=== PATIENT | male | born 1970 | race Caucasian/White ===

== ENCOUNTER 2024-11-14 21:20 | Emergency (ER) | payer MEDICARE, MEDICAID ==
[~2024-11-14] VITALS: Ht 177.8 cm; Wt 95.5 kg
[~2024-11-14 21:20] MED LIST: CLON-595 PO; DIVA-153 PO
[2024-11-14 21:30] VITALS: BP 146/102; PULSE 94; RESP 16; TEMP 98.4; O2SAT 97
[2024-11-14 21:39] LABS: COVID AG,FIA SOURCE NASAL SWAB
[2024-11-14 21:50] LABS: RAPID GROUP A STREP NEGATIVE (NEGATIVE)
[2024-11-14 21:57] LABS: INFLUENZA TYPE A NEGATIVE FOR TYPE A (NEGATIVE); INFLUENZA TYPE B NEGATIVE FOR TYPE B (NEGATIVE); SARS-COV2 (COVID) ANTIGEN,FIA Negative (Negative)
[2024-11-14] MEDS ORDERED: AMOX500C2 PO (23:07)
[2024-11-14] MEDS: IBUPROFEN 400 MG TABLET PO ONE (23:17)
[2024-11-14] MEDS: AMOXICILLIN TRIHYDRATE 250 MG CAPSULE PO ONE (23:17)
[2024-11-14] MEDS: dexAMETHasone 4 MG TABLET PO ONE (23:17)
== END 2024-11-14 23:21 | disposition home or self-care (01) ==
LOC: EMS 21:20
DX: H65.01 Acute serous otitis media, right ear (principal); R07.0 Pain in throat; I10 Essential (primary) hypertension; F31.9 Bipolar disorder, unspecified; F17.210 Nicotine dependence, cigarettes, uncomplicated; Z88.8 Allergy status to other drugs, medicaments and biological substances; Z79.899 Other long term (current) drug therapy; Z20.822 Contact with and (suspected) exposure to COVID-19
CPT/HCPCS: 99284; 87426; 87430; 87804; J8540; Z7502; Z7610

== ENCOUNTER 2025-05-12 15:50 | Emergency (ER) | payer MEDICARE, MEDICAID ==
[~2025-05-12] VITALS: Ht 177.8 cm; Wt 104.4 kg
[~2025-05-12 15:50] MED LIST changes: +AMOX500C2 PO
[2025-05-12 16:00] VITALS: BP 125/96; PULSE 85; RESP 20; TEMP 98.1; O2SAT 97
[2025-05-12] MEDS ORDERED: MECL-302 PO (16:17)
[2025-05-12] MEDS ORDERED: AMOX-457 PO (16:17)
[2025-05-12] MEDS: MECLIZINE HCL 25 MG TABLET PO ONE (16:29)
[2025-05-12] MEDS ORDERED: CIPOTIC AU (16:44)
== END 2025-05-12 17:25 | disposition home or self-care (01) ==
LOC: EMS 15:50
DX: H60.93 Unspecified otitis externa, bilateral (principal); F31.9 Bipolar disorder, unspecified; F41.9 Anxiety disorder, unspecified; F17.210 Nicotine dependence, cigarettes, uncomplicated; Z79.899 Other long term (current) drug therapy; Z88.5 Allergy status to narcotic agent
CPT/HCPCS: 99283